=== PATIENT | female | born 1980 | race Caucasian/White ===

== ENCOUNTER 2017-01-18 12:29 | Emergency (ER) | payer MEDICARE, MEDICAID | END 2017-01-18 13:42 | disposition left against medical advice (07) | LOC: D.ER 12:29 | DX: F11.10 Opioid abuse, uncomplicated (principal) ==

== ENCOUNTER 2017-08-22 15:39 | Emergency (ER) | payer MEDICARE, MEDICAID ==
[~2017-08-22] VITALS: Ht 162.6 cm; Wt 49.9 kg
[2017-08-22 16:37] LABS: BASOPHILS 0.2 % (0-2); EOSINOPHILS 2.5 % (0-7); HEMATOCRIT 37.2 % (36.0-48.0); IMMATURE GRANULOCYTES 0.1 % (0-5); LYMPHOCYTES 38.8 % (15-50); MCH 27.8 pg (26.0-34.0); MCHC 32.3 g/dL (31.0-37.0); MCV 86.3 fL (80.0-100.0); MEAN PLATELET VOLUME 10.5 fL (7.4-10.4); MONOCYTES 12.6 % (2-11); NEUTROPHILS 45.8 % (40-80); PLATELET COUNT 187 10x3/uL (130-400); RBC 4.31 10x6/uL (4.00-5.40); WBC 8.7 10x3/uL (4.8-10.8)
[2017-08-22 16:39] LABS: KETONE - SERUM NEGATIVE (NEGATIVE)
[2017-08-22 16:59] LABS: ALBUMIN 3.4 g/dL (3.4-5.0); ALKALINE PHOSPHATASE 84 U/L (46-116); ALT (SGPT) 24 U/L (10-68); BILIRUBIN - TOTAL 0.21 mg/dL (0.2-1.3); CALC OSMOLALITY 279 mosm/kg (275-300); CALCIUM 8.4 mg/dL (8.5-10.1); CARBON DIOXIDE 29.9 mmol/L (21.0-32.0); CHLORIDE - SERUM 102 mmol/L (98-107); CREATININE - SERUM 0.6 mg/dL (0.6-1.3); GLUCOSE 96 mg/dL (74-106); MAGNESIUM - SERUM 1.8 mg/dL (1.8-2.4); POTASSIUM - SERUM 4.2 mmol/L (3.5-5.1); PROTEIN - SERUM 7.2 g/dL (6.4-8.2); SODIUM 140 mmol/L (136-145); UREA NITROGEN 14 mg/dL (7-18); eGFR NON AFRICAN AMERICAN > 90 mL/min (90-120)
[2017-08-22 17:50] LABS: APPEARANCE CLEAR (CLEAR); BILIRUBIN NEGATIVE (NEGATIVE); COLOR YELLOW (YELLOW); GLUCOSE NEGATIVE (NEGATIVE); KETONE NEGATIVE (NEGATIVE); NITRITE NEGATIVE (NEGATIVE); PROTEIN NEGATIVE (NEGATIVE); UROBILINOGEN NORMAL (NORMAL)
[2017-08-22 17:54] LABS: HCG URINE NEGATIVE (NEGATIVE)
[2017-08-22 18:01] LABS: UDS - AMPHET POSITIVE QUAL (NEGATIVE); UDS - BARB NEGATIVE QUAL (NEGATIVE); UDS - BENZO POSITIVE QUAL (NEGATIVE); UDS - COCAINE NEGATIVE QUAL (NEGATIVE); UDS - OPIATE NEGATIVE QUAL (NEGATIVE); UDS - PCP NEGATIVE QUAL (NEGATIVE); UDS - THC NEGATIVE QUAL (NEGATIVE)
== END 2017-08-22 20:10 | disposition left against medical advice (07) ==
LOC: D.ER 15:39
PROVIDERS: Physician Assistant Medical
DX: T40.1X1A Poisoning by heroin, accidental (unintentional), initial encounter (principal); T40.4X1A Poisoning by other synthetic narcotics, accidental (unintentional), initial encounter; Y92.019 Unspecified place in single-family (private) house as the place of occurrence of the external cause; F17.200 Nicotine dependence, unspecified, uncomplicated

== ENCOUNTER 2018-09-24 03:51 | Emergency (ER) | payer MEDICARE ==
[~2018-09-24] VITALS: Ht 162.6 cm; Wt 59.0 kg
[2018-09-24 03:54] VITALS: Ht 162.6 cm; Wt 59.0 kg
[2018-09-24] MEDS ORDERED: ADDERALL 15 MG15 MG (03:55)
[2018-09-24] MEDS ORDERED: XANAX2 MG PO (03:55)
[2018-09-24] MEDS ORDERED: LINZESS145 MCG PO (03:55)
[2018-09-24] MEDS ORDERED: BUPRENORPHIN-N1 EACH (03:55)
[2018-09-24] MEDS ORDERED: AMOXICILLIN500 M1 (03:56)
[2018-09-24] MEDS ORDERED: OMEPRAZOLE40 MG (03:56)
[2018-09-24] MEDS ORDERED: PROPRANOLOL HCL20 MG (03:56)
[2018-09-24] MEDS ORDERED: POLYSPORIN OINT15 G1 TOPICAL (03:58)
[2018-09-24 04:09] VITALS: BP 112/74
[2018-09-25] MEDS ORDERED: AMOXICILLIN500 M1 PO (04:56)
== END 2018-09-24 04:09 | disposition home or self-care (01) ==
LOC: D.ER 03:51
DX: S40.261A Insect bite (nonvenomous) of right shoulder, initial encounter (principal); W57.XXXA Bitten or stung by nonvenomous insect and other nonvenomous arthropods, initial encounter; Y93.9 Activity, unspecified; Y92.019 Unspecified place in single-family (private) house as the place of occurrence of the external cause

== ENCOUNTER 2018-09-25 04:27 | Emergency (ER) | payer MEDICARE ==
[~2018-09-25] VITALS: Ht 162.6 cm; Wt 59.0 kg
[~2018-09-25 04:27] MED LIST: ADDERALL 15 MG15 MG; AMOXICILLIN500 M1; BUPRENORPHIN-N1 EACH; LINZESS145 MCG PO; OMEPRAZOLE40 MG; POLYSPORIN OINT15 G1 TOPICAL; PROPRANOLOL HCL20 MG; XANAX2 MG PO
[2018-09-25 04:31] VITALS: Ht 162.6 cm; Wt 59.0 kg
[2018-09-25] MEDS ORDERED: AMOXICILLIN500 M1 PO (04:56)
[2018-09-25 05:08] VITALS: BP 113/70
== END 2018-09-25 05:08 | disposition home or self-care (01) ==
LOC: D.ER 04:27
DX: K08.89 Other specified disorders of teeth and supporting structures (principal)